=== PATIENT | female | born 1945 | race Hispanic/Latino ===

== ENCOUNTER 2017-11-16 12:52 | Emergency (ER) | payer OTHER ==
[2017-11-16] MEDS ORDERED: METHYLPREDNISOLONE 125 MG INJ ONE (13:39)
[2017-11-16] MEDS ORDERED: FAMOTIDINE 20 MG/2 ML VIAL IV ONE (13:39)
[2017-11-16] MEDS ORDERED: DIPHENHYDRAMINE 50 MG/ML VIAL ONE (13:39)
--- NOTE | 2017-11-16 15:43 | ER ---
Nurse's Notes [facility] Name: Shannen Easton Age: 72 yrs Sex: Female : 1945 Arrival Date: 11/16/2017 Time: 12:57 Bed 24 Private MD: out of town, doctor Diagnosis: Angioedema secondary to lisinopril Presentation: 11/16 13:07 Presenting complaint: Granddaughter states "She's been feeling dizzy for about a week. jl7 Today she woke up and her tongue was swollen. And her blood pressure was 204/80.". Transition of care: patient was not received from another setting of care. Onset of symptoms was November 16, 2017. Risk Assessment: Do you want to hurt yourself or someone else? Patient reports no desire to harm self or others. Initial Sepsis Screen: Does the patient meet any 2 criteria? No. Patient's initial sepsis screen is negative. Does the patient have a suspected source of infection? No. Patient's initial sepsis screen is negative. Care prior to arrival: None. 13:07 Method Of Arrival: Ambulatory [facility] [place] 13:07 Acuity: PAULINE 3 kr2 Triage Assessment: 13:13 General: Appears in no apparent distress. uncomfortable, Behavior is calm, cooperative, jl7 appropriate for age. Pain: Denies pain. EENT: tongue noted to be swollen on the right side.. Respiratory: Airway is patent Respiratory effort is even, unlabored, Respiratory pattern is regular, symmetrical, Denies shortness of breath. Historical: - Allergies: 13:13 PENICILLINS; jl7 - Home Meds: 13:13 Lisinopril Oral [Active]; metformin 500 mg Oral tab 1 tab [Active]; glyburide 5 mg Oral jl7 tab 1 tab 2 times per day [Active]; rosuvastatin 10 mg oral tab 1 tab once daily [Active]; omeprazole 40 mg Oral cpDR 1 cap once daily [Active]; fexofenadine 60 mg Oral tab 1 tab 2 times per day [Active]; meloxicam 7.5 mg oral tab 1 tab once daily [Active]; aspirin 81 mg oral TbEC once daily [Active]; - PMHx: 13:13 Diabetes - NIDDM; Hypertension; Hyperlipidemia; jl7 - PSHx: 13:13 Hernia repair; jl7 - Immunization history:: Adult Immunizations up to date. - Social history:: Smoking status: Patient/guardian denies using tobacco. - Ebola Screening: : No symptoms or risks identified at this time. - Family history:: not pertinent. - Hospitalizations: : No recent hospitalization is reported. Screenin:15 Abuse screen: Denies threats or abuse. Denies injuries from another. Nutritional kr2 screening: No deficits noted. Tuberculosis screening: No symptoms or risk factors identified. Fall Risk None identified. Assessment: 13:15 General: Appears in no apparent distress. comfortable, well groomed, well developed, kr2 well nourished, Behavior is calm, cooperative, appropriate for age. Pain: Denies pain. Neuro: Level of Consciousness is awake, alert, obeys commands, Oriented to person, place, time, situation, Appropriate for age. Cardiovascular: Capillary refill < 3 seconds in bilateral fingers Patient's skin is warm and dry. Respiratory: Airway is patent Respiratory effort is even, unlabored, Respiratory pattern is regular, symmetrical, Breath sounds are clear bilaterally. GI: Abdomen is flat, non-distended. EENT: Oral mucosa is moist. tongue swollen on right side. Throat is clear. Derm: Skin is intact, is healthy with good turgor, Skin is pink, warm \\T\\ dry. Musculoskeletal: Circulation, motion, and sensation intact. 14:20 Reassessment: Patient appears in no apparent distress at this time. Patient and/or kr2 family updated on plan of care and expected duration. Pain level reassessed. Patient is alert, oriented x 3, equal unlabored respirations, skin warm/dry/pink. Patient states feeling better. Patient states symptoms have improved. 15:30 Reassessment: Patient appears in no apparent distress at this time. Patient and/or kr2 family updated on plan of care and expected duration. Pain level reassessed. Patient is alert, oriented x 3, equal unlabored respirations, skin warm/dry/pink. Patient denies pain at this time. Patient states feeling better. Patient states symptoms have improved. Vital Signs: 13:13 BP 196 / 61; Pulse 98; Resp 16 S; Temp 99.1(O); Pulse Ox 95% on R/A; Weight 77.56 kg jl7 (R); Height 5 ft. 1 in. (154.94 cm) (R); Pain 0/10; 13:55 BP 185 / 68; Pulse 82; Resp 17; Pulse Ox 100% on R/A; kr2 15:53 BP 164 / 75; Pulse 80; Resp 17; Pulse Ox 97% on R/A; kr2 13:13 Body Mass Index 32.31 (77.56 kg, 154.94 cm) jl7 ED Course: 12:57 Patient arrived in ED. mr 12:58 out of town, doctor is Private Physician. mr 13:10 Triage completed. jl7 13:13 Arm band placed on right wrist. jl7 13:15 Patient has correct armband on for positive identification. Bed in low position. Call kr2 light in reach. Side rails up X2. Adult w/ patient. Pulse ox on. NIBP on. Door closed. Warm blanket given. Head of bed elevated. 13:18 Drake Baxter MD is Attending Physician. rn 13:31 Heather Sahni, MARYBETH is Primary Nurse. kr2 13:35 Inserted saline lock: 22 gauge in right antecubital area, using aseptic technique. kr2 15:54 No provider procedures requiring assistance completed. IV discontinued, intact, kr2 bleeding controlled, No redness/swelling at site. Pressure dressing applied. Administered Medications: 13:41 Drug: SOLU-Medrol 125 mg Route: IVP; Site: right antecubital; kr2 15:54 Follow up: Response: No adverse reaction kr2 13:41 Drug: Benadryl 25 mg Route: IVP; Site: right antecubital; kr2 15:54 Follow up: Response: No adverse reaction; Marked relief of symptoms kr2 13:41 Drug: Pepcid 20 mg Route: IVP; Site: right antecubital; kr2 15:53 Follow up: Response: No adverse reaction; No adverse reaction, tongue swelling decreasedkr2 Outcome: 15:42 Discharge ordered by . rn 15:54 Discharged to home ambulatory, with family. kr2 15:54 Condition: improved 15:54 Discharge instructions given to patient, family, Instructed on discharge instructions, follow up and referral plans. medication usage, Demonstrated understanding of instructions, follow-up care, medications, Prescriptions given X 1. 15:56 Patient left the ED. kr2 Signatures: Heaven Herrera mr Drake Baxter MD MD rn Leal, Jahala, RN RN jl7 Heather Sahni RN RN kr2 Corrections: (The following items were deleted from the chart) 13:43 13:07 Acuity: PAULINE 2 jl7 kr2
--- NOTE | 2017-11-16 15:43 | EDPHYS ---
Physician Documentation [facility] Name: Shannen Easton Age: 72 yrs Sex: Female : 1945 Arrival Date: 11/16/2017 Time: 12:57 Bed 24 Private MD: out of town, doctor ED Physician Drake Baxter HPI: 11/16 15:39 This 72 yrs old Female presents to ER via Ambulatory with complaints of rn Swelling Of Tongue, High Blood Pressure. 15:39 The patient presents with swelling. Onset: The symptoms/episode began/occurred today. rn Modifying factors: The symptoms are alleviated by nothing, the symptoms are aggravated by nothing. Severity of symptoms: At their worst the symptoms were mild, in the emergency department the symptoms are unchanged. The patient has experienced a previous episode. Reports noticed swelling to right side of tongue today, no trouble swallowing or breathing, no sob, no rash, has happened once before and got better, takes lisinopril.. Historical: - Allergies: 13:13 PENICILLINS; jl7 - Home Meds: 13:13 Lisinopril Oral [Active]; metformin 500 mg Oral tab 1 tab [Active]; glyburide 5 mg Oral jl7 tab 1 tab 2 times per day [Active]; rosuvastatin 10 mg oral tab 1 tab once daily [Active]; omeprazole 40 mg Oral cpDR 1 cap once daily [Active]; fexofenadine 60 mg Oral tab 1 tab 2 times per day [Active]; meloxicam 7.5 mg oral tab 1 tab once daily [Active]; aspirin 81 mg oral TbEC once daily [Active]; - PMHx: 13:13 Diabetes - NIDDM; Hypertension; Hyperlipidemia; jl7 - PSHx: 13:13 Hernia repair; jl7 - Immunization history:: Adult Immunizations up to date. - Social history:: Smoking status: Patient/guardian denies using tobacco. - Ebola Screening: : No symptoms or risks identified at this time. - Family history:: not pertinent. - Hospitalizations: : No recent hospitalization is reported. ROS: 15:39 Constitutional: Negative for fever, chills, and weight loss, Eyes: Negative for injury, rn pain, redness, and discharge, Neck: Negative for injury, pain, and swelling, Cardiovascular: Negative for chest pain, palpitations, and edema, Respiratory: Negative for shortness of breath, cough, wheezing, and pleuritic chest pain, Abdomen/GI: Negative for abdominal pain, nausea, vomiting, diarrhea, and constipation, MS/Extremity: Negative for injury and deformity, Skin: Negative for injury, rash, and discoloration, Neuro: Negative for headache, and seizure. Exam: 15:39 Constitutional: This is a well developed, well nourished patient who is awake, alert, rn and in no acute distress. Head/Face: Normocephalic, atraumatic. Eyes: Pupils equal round and reactive to light, extra-ocular motions intact. Lids and lashes normal. Conjunctiva and sclera are non-icteric and not injected. Cornea within normal limits. Periorbital areas with no swelling, redness, or edema. ENT: + right side of tongue with mild swelling, no stridor, no lesions. Cardiovascular: Regular rate and rhythm with a normal S1 and S2. No gallops, murmurs, or rubs. Normal PMI, no JVD. No pulse deficits. Respiratory: Lungs have equal breath sounds bilaterally, clear to auscultation and percussion. No rales, rhonchi or wheezes noted. No increased work of breathing, no retractions or nasal flaring. Abdomen/GI: Soft, non-tender, with normal bowel sounds. No distension or tympany. No guarding or rebound. No evidence of tenderness throughout. Skin: Warm, dry with normal turgor. Normal color with no rashes, no lesions, and no evidence of cellulitis. MS/ Extremity: Pulses equal, no cyanosis. Neurovascular intact. Full, normal range of motion. Equal circumference. Neuro: Awake and alert, GCS 15, oriented to person, place, time, and situation. Cranial nerves II-XII grossly intact. Motor strength 5/5 in all extremities. Sensory grossly intact. Cerebellar exam normal. Normal gait. Vital Signs: 13:13 BP 196 / 61; Pulse 98; Resp 16 S; Temp 99.1(O); Pulse Ox 95% on R/A; Weight 77.56 kg jl7 (R); Height 5 ft. 1 in. (154.94 cm) (R); Pain 0/10; 13:55 BP 185 / 68; Pulse 82; Resp 17; Pulse Ox 100% on R/A; kr2 15:53 BP 164 / 75; Pulse 80; Resp 17; Pulse Ox 97% on R/A; kr2 13:13 Body Mass Index 32.31 (77.56 kg, 154.94 cm) jl7 MDM: 13:18 Patient medically screened. rn 15:39 Differential diagnosis: angioedema. Data reviewed: vital signs, nurses notes, and as a rn result, I will discharge patient. Counseling: I had a detailed discussion with the patient and/or guardian regarding: the historical points, exam findings, and any diagnostic results supporting the discharge/admit diagnosis, the need for outpatient follow up, to return to the emergency department if symptoms worsen or persist or if there are any questions or concerns that arise at home. Response to treatment: the patient's symptoms have mildly improved after treatment, and as a result, I will discharge patient. Special discussion: I discussed with the patient/guardian in detail that at this point there is no indication for admission to the hospital. It is understood, however, that if the symptoms persist or worsen the patient needs to return immediately for re-evaluation. 15:39 ED course: Pt and family member instructed to never take lisinopril again.. rn 15:39 ED course: Is going to see pcp for BP med change on sunday.. rn 11/16 13:28 Order name: IV Start; Complete Time: 13:34 rn Administered Medications: 13:41 Drug: SOLU-Medrol 125 mg Route: IVP; Site: right antecubital; kr2 15:54 Follow up: Response: No adverse reaction kr2 13:41 Drug: Benadryl 25 mg Route: IVP; Site: right antecubital; kr2 15:54 Follow up: Response: No adverse reaction; Marked relief of symptoms kr2 13:41 Drug: Pepcid 20 mg Route: IVP; Site: right antecubital; kr2 15:53 Follow up: Response: No adverse reaction; No adverse reaction, tongue swelling decreasedkr2 Disposition: 11/16/17 15:42 Discharged to Home. Impression: Angioedema secondary to lisinopril. - Condition is Stable. - Discharge Instructions: Angioedema. - Prescriptions for Prednisone 20 mg Oral Tablet - take 3 tablet by ORAL route once daily for 5 days; 15 tablet. - Medication Reconciliation Form, Thank You Letter, Antibiotic Education, Prescription Opioid Use form. - Follow up: Private Physician; When: 2 - 3 days; Reason: Recheck today's complaints, Re-evaluation by your physician. - Problem is new. - Symptoms have improved. Signatures: Drake Baxter MD MD rn Leal, Jahala RN RN jl7 Heather Sahni RN RN kr2 Corrections: (The following items were deleted from the chart) 15:56 15:42 11/16/2017 15:42 Discharged to Home. Impression: Angioedema secondary to kr2 lisinopril. Condition is Stable. Forms are Medication Reconciliation Form, Thank You Letter, Antibiotic Education, Prescription Opioid Use. Follow up: Private Physician; When: 2 - 3 days; Reason: Recheck today's complaints, Re-evaluation by your physician. Problem is new. Symptoms have improved. rn
== END 2017-11-16 15:56 | disposition home or self-care (01) ==
LOC: ER 12:52
DX: T78.3XXA Angioneurotic edema, initial encounter (principal); I10 Essential (primary) hypertension; E78.5 Hyperlipidemia, unspecified; E11.9 Type 2 diabetes mellitus without complications; Z79.82 Long term (current) use of aspirin; Z88.0 Allergy status to penicillin; Z88.8 Allergy status to other drugs, medicaments and biological substances
CPT/HCPCS: 96374; 96375; 99284; J2930

== ENCOUNTER 2017-11-22 23:22 | Emergency (ER) | payer OTHER ==
[2017-11-23 01:10] LABS: Absolute Lymphocytes (CBC) 5.9 K/uL (0.7-4.9); Absolute Monocytes 0.9 K/uL (0.1-1.3); Absolute Neutrophil 7.4 K/uL (1.8-8.0); Basophils % 0.1 % (0-1.3); Eosinophils % 1.7 % (0-4.4); Hematocrit 36.5 % (36.0-45.0); Lymphocytes % 40.6 % (15.3-44.8); MCH 29.2 pg (27.0-35.0); MCV 86.6 fL (80-100); MPV 9.7 fL (7.6-11.3); Monocytes % 6.2 % (3.3-12.3); RBC Red Blood Cell Count 4.22 M/uL (3.86-4.86)
[2017-11-23 01:22] LABS: Potassium 3.8 mmol/L (3.5-5.1)
[2017-11-23 01:47] LABS: Urine Blood TRACE (NEG); Urine Glucose NEGATIVE (NEG); Urine Protein NEGATIVE (NEG); Urine Specific Gravity 1.015 (1.005-1.030)
[2017-11-23 01:50] LABS: Urine Bacteria <20 /HPF (<20); Urine RBC <5 /HPF (NONE SEEN)
[2017-11-23 01:51] LABS: Urine Culture Reflex Order NOT NEEDED
[2017-11-23] MEDS ORDERED: NA CHLORIDE 0.9% 500 ML ONE (02:18)
--- NOTE | 2017-11-23 03:25 | ER ---
Nurse's Notes [facility] Name: Shannen Easton Age: 72 yrs Sex: Female : 1945 Arrival Date: 11/22/2017 Time: 23:25 Bed 7 Private MD: Sergei Geller E Diagnosis: Hypertensive heart disease Presentation: 11/22 23:30 Presenting complaint: Patient states: that since last night she has been feeling "hot", fc swollen and as if her head was "heavy". Denies any nausea, vomiting or shortness of breath. Transition of care: patient was not received from another setting of care. Onset of symptoms was November 21, 2017. Risk Assessment: Do you want to hurt yourself or someone else? Patient reports no desire to harm self or others. Initial Sepsis Screen: Does the patient meet any 2 criteria? HR > 90 bpm. No. Patient's initial sepsis screen is negative. Does the patient have a suspected source of infection? No. Patient's initial sepsis screen is negative. Care prior to arrival: Medication(s) given: OTC diuretic med. 23:30 Method Of Arrival: Ambulatory 23:30 Acuity: APULINE 3 fc Historical: - Allergies: 23:57 PENICILLINS; fc 23:57 Lisinopril; fc - Home Meds: 23:57 fexofenadine 60 mg Oral tab 1 tab 2 times per day [Active]; meloxicam 7.5 mg Oral tab 1 fc tab once daily [Active]; glyburide 5 mg Oral tab 1 tab 2 times per day [Active]; metformin 500 mg Oral tab 1 tab 2 times per day [Active]; rosuvastatin 10 mg Oral tab 1 tab once daily [Active]; aspirin 81 mg Oral TbEC 1 tab once daily [Active]; omeprazole 40 mg Oral cpDR 1 cap once daily [Active]; amlodipine 10 mg tab 1 tab once daily [Active]; - PMHx: 23:57 Diabetes - NIDDM; Hypertension; Hyperlipidemia; Arthritis; High Cholesterol; fc - PSHx: 23:57 Hernia repair; fc - Immunization history:: Last tetanus immunization: unknown. - Social history:: Smoking status: Patient/guardian denies using tobacco. - Ebola Screening: : Patient negative for fever greater than or equal to 101.5 degrees Fahrenheit, and additional compatible Ebola Virus Disease symptoms Patient denies exposure to infectious person Patient denies travel to an Ebola-affected area in the 21 days before illness onset. Screenin:30 Abuse screen: Denies threats or abuse. Denies injuries from another. Nutritional fc screening: No deficits noted. Tuberculosis screening: No symptoms or risk factors identified. Fall Risk None identified. Assessment: 11/23 00:10 General: Appears in no apparent distress. Behavior is calm, cooperative, appropriate ea for age. Pain: Denies pain. Neuro: Level of Consciousness is awake, alert, obeys commands, Oriented to person, place, time, situation. Cardiovascular: Patient's skin is warm and dry. Cardiovascular: Parent/caregiver reports patient has had since candy lower edema earlier in the day. Respiratory: Airway is patent Respiratory effort is even, unlabored, Respiratory pattern is regular, symmetrical, Breath sounds are clear bilaterally. GI: Abdomen is non-distended, Bowel sounds present X 4 quads. Abd is soft and non tender X 4 quads. : No signs and/or symptoms were reported regarding the genitourinary system. EENT: No signs and/or symptoms were reported regarding the EENT system. Derm: Skin is pink, warm \\T\\ dry. no edema present at this time. Musculoskeletal: Circulation, motion, and sensation intact. 01:55 Reassessment: Patient and/or family updated on plan of care and expected duration. Pain ea level reassessed. Patient is alert, oriented x 3, equal unlabored respirations, skin warm/dry/pink. Patient denies pain at this time. Reassessment: Family remains at bedside. 02:50 Reassessment: Patient and/or family updated on plan of care and expected duration. Pain ea level reassessed. Patient is alert, oriented x 3, equal unlabored respirations, skin warm/dry/pink. Patient denies pain at this time. 03:42 Reassessment: Patient and/or family updated on plan of care and expected duration. Pain ea level reassessed. Patient is alert, oriented x 3, equal unlabored respirations, skin warm/dry/pink. Discharge instructions given to patient, verbalized the understanding of instruction. Patient denies pain at this time. Patient states feeling better. Vital Signs: 11/22 23:30 BP 194 / 81; Pulse 106; Resp 20; Temp 97.9(O); Pulse Ox 100% on R/A; Weight 77.11 kg fc (R); Height 5 ft. 1 in. (154.94 cm) (R); Pain 0/10; 11/23 00:00 BP 155 / 73; Pulse 72; Resp 18; Pulse Ox 99% on R/A; ea 01:09 BP 168 / 70; Pulse 70; Resp 18; Pulse Ox 99% on R/A; ea 02:20 BP 147 / 96; Pulse 72; Resp 18; Pulse Ox 98% ; ea 03:17 BP 159 / 65; Pulse 78; Resp 18; Pulse Ox 98% on R/A; ea 03:44 BP 168 / 65; Pulse 72; Resp 18; Temp 97.6; Pulse Ox 100% ; Pain 0/10; ea 11/22 23:30 Body Mass Index 32.12 (77.11 kg, 154.94 cm) ED Course: 11/22 23:25 Patient arrived in ED. al2 23:26 Sergei Geller MD is Private Physician. al2 23:30 Arm band placed on Patient placed in an exam room, on a stretcher. fc 23:30 Patient has correct armband on for positive identification. Bed in low position. Call light in reach. 23:40 Triage completed. fc 23:46 Blaise Aguilera PA is PHCP. cp 23:46 Sergei Martinez MD is Attending Physician. cp 11/23 00:07 Virginie Calvin, MARYBETH is Primary Nurse. ea 00:54 Inserted saline lock: 22 gauge in right antecubital area, using aseptic technique. ea Blood collected. 01:[address] via stretcher. kw1 01:32 CT completed. Patient tolerated procedure well. Patient moved back from CT. kw1 01:34 CT Head Brain wo Cont In Process Unspecified. EDMS 02:34 X-ray completed. Portable x-ray completed in exam room. Patient tolerated procedure mh1 well. 02:37 XRAY Chest (1 view) In Process Unspecified. EDMS 03:24 Sergei Geller MD is Referral Physician. cp 03:40 No provider procedures requiring assistance completed. IV discontinued, intact, ea bleeding controlled, No redness/swelling at site. Pressure dressing applied. Administered Medications: 02:18 Not Given (Hemodynamic Parameters): cloNIDine 0.1 mg PO once ea 02:18 Drug: NS 0.9% 500 ml Route: IV; Rate: bolus; Site: right antecubital; ea 03:46 Follow up: Response: No adverse reaction; IV Status: Completed infusion bj Outcome: 03:24 Discharge ordered by . lisa 03:41 Discharged to home ambulatory, with family. ea 03:41 Condition: improved 03:41 Discharge instructions given to patient, Instructed on discharge instructions, follow up and referral plans. Demonstrated understanding of instructions, follow-up care. 03:46 Patient left the ED. ea Signatures: Dispatcher [employer] EDPetra Belle Felicia RN RN Blaise Arguelles PA PA cp Antunez, Elena, RN RN Bety Rios1 Orin Flores2 Corrections: (The following items were deleted from the chart) 00:42 00:10 Derm: Skin is pink, warm \\T\\ dry. bj lorenzo 03:18 02:20 BP 147 / 96; Pulse 18bpm; Resp 72bpm; Pulse Ox 18%; bj lorenzo
--- NOTE | 2017-11-23 03:25 | EDPHYS ---
Physician Documentation [facility] Name: Shannen Easton Age: 72 yrs Sex: Female : 1945 Arrival Date: 11/22/2017 Time: 23:25 Bed 7 Private MD: Sergei Geller E ED Physician Sergei Martinez HPI: 11/22 23:55 This 72 yrs old Female presents to ER via Ambulatory with complaints of Feet cp Swelling, Fever. 23:55 The patient reports fever, not measured (subjective). cp 23:55 Onset: The symptoms/episode began/occurred last night. cp 23:55 Associated signs and symptoms: Pertinent positives: patient reports back of head "feels cp hot" and swelling of lower legs, Pertinent negatives: altered mental status, cough, diarrhea, headache, skin rash, sore throat, vomiting. Historical: - Allergies: 23:57 PENICILLINS; fc 23:57 Lisinopril; fc - Home Meds: 23:57 fexofenadine 60 mg Oral tab 1 tab 2 times per day [Active]; meloxicam 7.5 mg Oral tab 1 fc tab once daily [Active]; glyburide 5 mg Oral tab 1 tab 2 times per day [Active]; metformin 500 mg Oral tab 1 tab 2 times per day [Active]; rosuvastatin 10 mg Oral tab 1 tab once daily [Active]; aspirin 81 mg Oral TbEC 1 tab once daily [Active]; omeprazole 40 mg Oral cpDR 1 cap once daily [Active]; amlodipine 10 mg tab 1 tab once daily [Active]; - PMHx: 23:57 Diabetes - NIDDM; Hypertension; Hyperlipidemia; Arthritis; High Cholesterol; fc - PSHx: 23:57 Hernia repair; fc - Immunization history:: Last tetanus immunization: unknown. - Social history:: Smoking status: Patient/guardian denies using tobacco. - Ebola Screening: : Patient negative for fever greater than or equal to 101.5 degrees Fahrenheit, and additional compatible Ebola Virus Disease symptoms Patient denies exposure to infectious person Patient denies travel to an Ebola-affected area in the 21 days before illness onset. ROS: 11/23 00:15 Constitutional: Negative for body aches, chills, fever, poor PO intake. cp 00:15 Eyes: Negative for injury, pain, redness, and discharge. cp 00:15 ENT: Negative for drainage from ear(s), ear pain, sore throat, difficulty swallowing, difficulty handling secretions. 00:15 Cardiovascular: Negative for chest pain, edema, palpitations. 00:15 Respiratory: Negative for cough, shortness of breath, wheezing. 00:15 Abdomen/GI: Negative for abdominal pain, nausea, vomiting, and diarrhea, constipation, black/tarry stool, rectal bleeding. 00:15 Back: Negative for pain at rest, pain with movement, radiated pain. 00:15 : Negative for urinary symptoms. 00:15 Skin: Negative for cellulitis, rash. 00:15 Neuro: Negative for altered mental status, dizziness, syncope, near syncope, visual changes, weakness. 00:15 All other systems are negative. Exam: 00:30 Constitutional: The patient appears in no acute distress, alert, awake, cp non-diaphoretic, non-toxic, well developed, well nourished. 00:30 Head/Face: Normocephalic, atraumatic. cp 00:30 Eyes: Periorbital structures: appear normal, Pupils: equal, round, and reactive to light and accomodation, Extraocular movements: intact throughout, Conjunctiva: normal, no exudate, no injection, Lids and lashes: appear normal, bilaterally. 00:30 ENT: External ear(s): are unremarkable, Ear canal(s): are normal, clear, TM's: dullness, bilaterally, Nose: is normal, Mouth: Lips: moist, Oral mucosa: pink and intact, moist, Posterior pharynx: is normal, airway is patent, no erythema, no exudate. 00:30 Neck: External neck: is normal, ROM/movement: is normal, is supple, no meningismus, no cp nuchal rigidity. 00:30 Chest/axilla: Inspection: normal, Palpation: is normal, no crepitus, no tenderness. 00:30 Cardiovascular: Rate: normal, Rhythm: regular, Edema: is not appreciated, JVD: is not appreciated. 00:30 Respiratory: the patient does not display signs of respiratory distress, Respirations: normal, no use of accessory muscles, no retractions, no splinting, no tachypnea, labored breathing, is not present, Breath sounds: are clear throughout, no decreased breath sounds, no stridor, no wheezing. 00:30 Abdomen/GI: Inspection: abdomen appears normal, Bowel sounds: active, all quadrants, cp Palpation: abdomen is soft and non-tender, in all quadrants, rebound tenderness, is not appreciated, voluntary guarding, is not appreciated, involuntary guarding, is not appreciated. 00:30 Back: pain, is absent, ROM is normal. 00:30 Skin: cellulitis, is not appreciated, no rash present. 00:30 Neuro: Orientation: to person, place \\T\\ time. Mentation: lucid, able to follow commands, Cerebellar function: Romberg testing is negative, Motor: moves all fours, strength is normal, Sensation: no obvious gross deficits, Gait: is steady. 01:08 ECG was reviewed by the Attending Physician. cp Vital Signs: 11/22 23:30 BP 194 / 81; Pulse 106; Resp 20; Temp 97.9(O); Pulse Ox 100% on R/A; Weight 77.11 kg fc (R); Height 5 ft. 1 in. (154.94 cm) (R); Pain 0/10; 11/23 00:00 BP 155 / 73; Pulse 72; Resp 18; Pulse Ox 99% on R/A; ea 01:09 BP 168 / 70; Pulse 70; Resp 18; Pulse Ox 99% on R/A; ea 02:20 BP 147 / 96; Pulse 72; Resp 18; Pulse Ox 98% ; ea 03:17 BP 159 / 65; Pulse 78; Resp 18; Pulse Ox 98% on R/A; ea 03:44 BP 168 / 65; Pulse 72; Resp 18; Temp 97.6; Pulse Ox 100% ; Pain 0/10; ea 11/22 23:30 Body Mass Index 32.12 (77.11 kg, 154.94 cm) fc MDM: 11/22 23:46 Patient medically screened. cp 11/23 00:00 Differential diagnosis: bronchitis, pneumonia UTI, gastroenteritis, meningitis. cp 03:17 ED course: vRad report of head CT negative for acute findings. cp 03:20 Data reviewed: vital signs, nurses notes, lab test result(s), EKG, radiologic studies, cp CT scan, plain films. 03:20 Test interpretation: by ED physician or midlevel provider: ECG, plain radiologic cp studies. Counseling: I had a detailed discussion with the patient and/or guardian regarding: the historical points, exam findings, and any diagnostic results supporting the discharge/admit diagnosis, lab results, radiology results, the need for outpatient follow up, a family practitioner, to return to the emergency department if symptoms worsen or persist or if there are any questions or concerns that arise at home. 11/23 00:21 Order name: CBC with Diff; Complete Time: 01:45 cp 11/23 03:12 Interpretation: Normal except: WBC 14.5; MCV 86.6; LYMA 5.9. 11/23 00:21 Order name: BMP; Complete Time: 01:45 cp 11/23 01:45 Interpretation: Normal except: BUN 24; GFR 44. cp 11/23 00:21 Order name: Magnesium; Complete Time: 01:45 cp 11/23 00:21 Order name: Urine Microscopic Only; Complete Time: 01:55 cp 11/23 00:56 Order name: Urine Dipstick--Ancillary (enter results); Complete Time: 01:55 jw5 11/23 01:55 Interpretation: Normal except: UBLD TRACE; UESTR TRACE. 11/23 01:08 Order name: CT Head Brain wo Cont cp 11/23 00:21 Order name: EKG; Complete Time: 00:21 cp 11/23 00:21 Order name: EKG - Nurse/Tech; Complete Time: 01:11 cp 11/23 00:21 Order name: Urine Dipstick-Ancillary (obtain specimen); Complete Time: 00:54 cp 11/23 00:22 Order name: IV; Complete Time: 00:54 cp 11/23 02:02 Order name: XRAY Chest (1 view) cp EC:08 Rate is 74 beats/min. Rhythm is regular. AR interval is normal. QRS interval is normal. cp QT interval is normal. No ST changes noted. Interpreted by me. Reviewed by me. Administered Medications: 02:18 Not Given (Hemodynamic Parameters): cloNIDine 0.1 mg PO once ea 02:18 Drug: NS 0.9% 500 ml Route: IV; Rate: bolus; Site: right antecubital; ea 03:46 Follow up: Response: No adverse reaction; IV Status: Completed infusion ea Disposition: 11/23/17 03:24 Discharged to Home. Impression: Hypertensive heart disease. - Condition is Stable. - Discharge Instructions: Hypertension, How to Take Your Blood Pressure, [id number], Managing Your Hypertension. - Medication Reconciliation Form, Thank You Letter, Antibiotic Education, Prescription Opioid Use form. - Follow up: Sergei Geller MD; When: 1 - 2 days; Reason: Recheck today's complaints. - Problem is chronic. - Symptoms have improved. Addendum: 11/27/2017 20:25 Co-signature as Attending Physician, Sergei Martinez MD I agree with the assessment and w a plan of care. Signatures: Dispatcher [employer] EDMS Beverly Drake RN RN Blaise Arguelles PA PA cp Virginie Calvin RN RN ea App[place], William, MD MD wa Corrections: (The following items were deleted from the chart) 11/23 03:12 01:45 Normal except: WBC 14.5; MCV 86.6. cp cp 03:25 03:24 11/23/2017 03:24 Discharged to Home. Impression: Hypertensive heart disease. cp Condition is Stable. Forms are Medication Reconciliation Form, Thank You Letter, Antibiotic Education, Prescription Opioid Use. Follow up: Sergei Geller; When: 1 - 2 days; Reason: Recheck today's complaints. Problem is chronic. Symptoms have improved. cp 03:26 03:25 11/23/2017 03:24 Discharged to Home. Impression: Hypertensive heart disease; cp Shortness of breath. Condition is Stable. Discharge Instructions: Hypertension, How to Take Your Blood Pressure, [id number], Managing Your Hypertension. Forms are Medication Reconciliation Form, Thank You Letter, Antibiotic Education, Prescription Opioid Use. Follow up: Sergei Geller; When: 1 - 2 days; Reason: Recheck today's complaints. Problem is chronic. Symptoms have improved. cp 03:46 03:26 11/23/2017 03:24 Discharged to Home. Impression: Hypertensive heart disease. ea Condition is Stable. Discharge Instructions: Hypertension, How to Take Your Blood Pressure, [id number], Managing Your Hypertension. Forms are Medication Reconciliation Form, Thank You Letter, Antibiotic Education, Prescription Opioid Use. Follow up: Sergei Geller; When: 1 - 2 days; Reason: Recheck today's complaints. Problem is chronic. Symptoms have improved. cp
--- NOTE | 2017-11-23 09:21 | EKG ---
Test Date: 2017-11-23 Test Time: 01:02:28 Beater Operator: [place] MEASUREMENT RESULTS: Intervals: Rate: 74 VT: 162 QRSD: 76 QT: 388 QTc: 430 [place]: P: 37 VT: 162 QRS: 6 T: 8 INTERPRETIVE STATEMENTS: Normal sinus rhythm Normal ECG No previous ECG available for comparison Electronically Signed On 11-23-17 07:33:16 CDT by Shaka Shea
--- NOTE | 2017-11-23 09:22 | RAD REPORT ---
EXAM DESCRIPTION: CT - Head Brain Wo Cont - 11/23/2017 4:38 am CLINICAL HISTORY: Hypertension, weakness A preliminary written report was provided at the time of the study, and the report was reviewed prio r to final dictation. COMPARISON: None. TECHNIQUE: Axial 5 mm thick images of the head were obtained without IV contrast. All CT scans are performed using dose optimization technique as appropriate and may include automated exposure control or mA/KV adjustment according to patient size. FINDINGS: No intracranial hemorrhage, mass, edema or shift of mid-line structures. No acute cortical based infarction. Atrophy changes are minimal. Mild to moderate chronic ischemic pattern seen. No ab normal extra-axial fluid collections. Ventricles are normal. Physiologic calcifications are present. Mastoid air cells and visualized portions of the paranasal sinuses are clear. No acute bony findings. IMPRESSION: No acute intracranial finding. Minimal atrophy and mild to moderate chronic ischemic change.
--- NOTE | 2017-11-23 09:23 | RAD REPORT ---
EXAM DESCRIPTION: RAD - Chest Single View - 11/23/2017 2:36 am CLINICAL HISTORY: Shortness of breath COMPARISON: None. TECHNIQUE: AP portable chest image was obtained 0213 hours . FINDINGS: Lungs are clear. Heart and vasculature are normal. No measurable pleural effusion and no p neumothorax. No gross bony abnormality seen. No acute aortic findings suspected. IMPRESSION: No acute cardiopulmonary process.
== END 2017-11-23 03:46 | disposition home or self-care (01) ==
LOC: ER 23:22
DX: I11.9 Hypertensive heart disease without heart failure (principal); E11.9 Type 2 diabetes mellitus without complications; Z79.84 Long term (current) use of oral hypoglycemic drugs; E78.5 Hyperlipidemia, unspecified; E78.00 Pure hypercholesterolemia, unspecified; M19.90 Unspecified osteoarthritis, unspecified site; Z88.0 Allergy status to penicillin; Z88.8 Allergy status to other drugs, medicaments and biological substances
CPT/HCPCS: 36415; 70450; 71045; 80048; 81003; 81015; 83735; 85025; 93005; 96360; 99284